=== PATIENT | male | born 1985 | race Caucasian/White ===

== ENCOUNTER 2018-06-15 00:17 | Emergency (ER) | payer OTHER ==
[~2018-06-15] VITALS: Ht 170.2 cm; Wt 59.0 kg
[2018-06-15] MEDS ORDERED: CLONAZEPAM1 MG (00:32)
[2018-06-15] MEDS ORDERED: CEFUROXIME500 MG PO (08:07)
[2018-06-15] MEDS ORDERED: MUPIROCIN22 GM TOP (08:07)
[2018-06-15] MEDS ORDERED: KETO10TA2 PO (08:07)
== END 2018-06-15 08:16 | disposition home or self-care (01) ==
LOC: ER 00:17
DX: S00.83XA Contusion of other part of head, initial encounter (principal); S40.011A Contusion of right shoulder, initial encounter; S20.212A Contusion of left front wall of thorax, initial encounter; S20.211A Contusion of right front wall of thorax, initial encounter; S60.221A Contusion of right hand, initial encounter; S80.02XA Contusion of left knee, initial encounter; W18.39XA Other fall on same level, initial encounter; Y93.89 Activity, other specified; Y92.89 Other specified places as the place of occurrence of the external cause; Y99.8 Other external cause status